=== PATIENT | female | born 1970 | race Two or more races ===

== ENCOUNTER 2022-05-02 10:27 | Outpatient (CLI) | payer BC | END 2022-05-02 23:59 | disposition home or self-care (01) | LOC: CT 10:27 | PROVIDERS: ATTEND Family Medicine | DX: K76.0 Fatty (change of) liver, not elsewhere classified (principal); I70.0 Atherosclerosis of aorta; R59.0 Localized enlarged lymph nodes | CPT/HCPCS: 71250-TC ==